=== PATIENT | female | born 1960 | race Caucasian/White ===

== ENCOUNTER 2019-05-02 13:22 | Emergency (ER) | payer MEDICARE ==
[~2019-05-02] VITALS: Ht 170.2 cm; Wt 86.0 kg
[~2019-05-02 13:22] MED LIST: ALBU8.5H8 INH; ALLO300T PO; AMLO-150 PO; AMLO5TAB4 PO; APIX5TAB PO; ASCO500T5 PO; CEFD300C37 PO; DIAZ2TAB3 PO; DIAZ5TAB4 PO; DOCU250C9 PO; DOXY100T PO; FAMO-79 PO; FLUT10SP NAS; GABA300C10 PO; GABA600T7 PO; HYDR-3237 PO; HYDR25TA6 PO; HYDR4TAB48 PO; LEVO175T5 PO; LOSA100T14 PO; LOSA50TA14 PO; METF500T17 PO; METO-93 PO; METO25TA91 PO; METO50TA82 PO; OXYC20TA2 PO; PANT40TA5 PO; QUIN20TA17 PO; ROSU10TA2 PO; SIMV20TA3 PO; TIZA4CAP PO; TRAM50TA2 PO; TRAZ50TA66 PO; TRIA10VI TD; VENL75CA PO
--- NOTE | 2019-05-02 14:40 | NUR ---
pt presented to ed with headache and altered level of consiousness. pt is a quadraplegic. pt placed in room and placed on bp and cont. pulse oximeter. assesment completed. per daughter, pt fell 3 days ago and did not hit her head. pt on eliquis per daughter. pt [id number]. assessment completed.
--- NOTE | 2019-05-02 14:51 | NUR ---
blood glucose done 446 and aware
--- NOTE | 2019-05-02 14:51 | NUR ---
pt taken to ct scan
--- NOTE | 2019-05-02 15:35 | NUR ---
CALLED ONCOLOGY TO START KAYACATStephen
--- NOTE | 2019-05-02 15:51 | NUR ---
oncology nurse at bedside to access port. unable to feel landmarks. Port is rectangle.
[2019-05-02] MEDS ORDERED: KETOROLAC 30 MG/1 ML ONE (16:24)
[2019-05-02] MEDS ORDERED: ONDANSETRON 2MG/ML, 2ML ONE (16:24)
[2019-05-02] MEDS ORDERED: KETOROLAC 30 MG/1 ML IVPush ONE (16:30)
[2019-05-02] MEDS ORDERED: ONDANSETRON 2MG/ML, 2ML IVPush ONE (16:30)
--- NOTE | 2019-05-02 16:54 | NUR ---
unable to draw from port..
--- NOTE | 2019-05-02 16:59 | NUR ---
lab into draw blood. port not drawing. port flushed with heparin by management internship and still unable to draw blood from port.
[2019-05-02 17:14] LABS: BASOPHILS # (AUTO) 0.03 x10^3/uL (0-0.1); BASOPHILS % (AUTO) 0 % (0-1); EOSINOPHILS # (AUTO) 0.16 x10^3/uL (0-0.4); EOSINOPHILS % (AUTO) 1 % (1-7); LYMPHOCYTES # (AUTO) 4.31 x10^3/uL (1-3.4); LYMPHOCYTES % (AUTO) 33 % (22-44); MD NO; MEAN CORPUSCULAR HEMOGLOBIN 31.9 pg (27.0-34.8); MEAN CORPUSCULAR HGB CONC 33.1 g/dL (32.4-35.8); MEAN CORPUSCULAR VOLUME 96.2 fL (80-100); MEAN PLATELET VOLUME 10.4 fL (7.4-10.4); MONOCYTES # (AUTO) 1.07 x10^3/uL (0.2-0.8); MONOCYTES % (AUTO) 8 % (2-9); NEUTROPHILS % (AUTO) 57 % (42-75); PLATELET COUNT 120 x10^3/uL (130-400); RED BLOOD COUNT 4.69 x10^6/uL (3.82-5.3); RED CELL DISTRIBUTION WIDTH 13.5 % (9.6-15.2)
[2019-05-02 17:25] LABS: ALBUMIN 3.2 g/dL (3.4-5.0); ANION GAP 8 mmol/L (5-15); CALCIUM 9.2 mg/dL (8.5-10.1); CHLORIDE 99 mmol/L (98-107); CREATININE 0.97 mg/dL (0.55-1.02)
[2019-05-02 17:59] LABS: ACETONE, SERUM Negative (Negative)
[2019-05-02 18:00] VITALS: BP 177/82
== END 2019-05-02 18:01 | disposition home or self-care (01) ==
LOC: ED 16:45
DX: G44.311 Acute post-traumatic headache, intractable (principal); S20.212A Contusion of left front wall of thorax, initial encounter; I25.2 Old myocardial infarction; I48.91 Unspecified atrial fibrillation; E11.9 Type 2 diabetes mellitus without complications; I10 Essential (primary) hypertension; Z86.73 Personal history of transient ischemic attack (TIA), and cerebral infarction without residual deficits; Z90.49 Acquired absence of other specified parts of digestive tract; W18.30XA Fall on same level, unspecified, initial encounter; Y93.89 Activity, other specified; Y92.89 Other specified places as the place of occurrence of the external cause; Y99.8 Other external cause status; Z86.39 Personal history of other endocrine, nutritional and metabolic disease
CPT/HCPCS: 36415; 70450; 71101; 80048; 82010; 82040; 85025; 93005; 96374; 96375; 99284; J1885; J2405; 82962